=== PATIENT | male | born 1985 | race Asian ===

== ENCOUNTER 2016-10-06 18:24 | Emergency (ER) | payer MEDICAID, OTHER ==
[~2016-10-06] VITALS: Ht 167.6 cm; Wt 60.0 kg
[~2016-10-06 18:24] MED LIST: PERC5TAB12 PO; TAMS0.4C67 PO
[2016-10-06 18:27] VITALS: BP 123/65; PULSE 76; RESP 17; TEMP 98.4; O2SAT 100
--- NOTE | 2016-10-06 20:26 | PD ---
HPI Chief Complaint: Skin Problem Time Seen by Provider: 20:19 Travel History International Travel<30 days: No Contact w/Intl Traveler<30days: No Traveled to known affect area: No History of Present Illness HPI 31-year-old [place] male presents emergency department with a sunburn. He states that he had gone out in the sun on Thursday without sunscreen. The patient states that the pain is burning, itching and he cannot get any rest. He has some associated nausea but no vomiting. No fever but he does feel chilly. He denies any abdominal pain, urinary symptoms. The patient has taken [id number] Solarcaine and he had taken one of his Toradol 10 mg tablets. PFSH Past Medical History Narrative Medical Kidney stones, hepatitis B Kidney Stones: Yes Tetanus Vaccination: < 5 Years Past Surgical History Surgical History: No Previous Surgery Social History Alcohol Use: No Tobacco Use: No Substance Use: No Allergies-Medications (Allergen,Severity, Reaction): Coded Allergies: No Known Allergies (Unverified , 10/06/16) Reported Meds & Prescriptions Reported Meds & Active Scripts Active Phenergan (Promethazine HCl) 25 Mg Tablet 25 Mg PO Q6H Lortab (Hydrocodone-Acetaminophen) 5-325 Mg Tab 1 Tab PO Q8HR PRN Review of Systems Except as stated in HPI: all other systems reviewed are Neg Physical Exam Narrative GENERAL: Well-developed, well-nourished in no acute distress. Nontoxic appearing. HEAD: Normocephalic, atraumatic. EYES: Pupils equal round and reactive. Extraocular motions intact. No scleral icterus. No injection or drainage. ENT: TMs clear without erythema. The external auditory canals clear. Nose: clear . Posterior pharynx is pink and moist. No tonsillar edema or exudate. Uvula midline. Airway patent. NECK: Trachea midline.Supple, nontender, moves head freely. No central bony tenderness or spasm. CARDIOVASCULAR: Regular rate and rhythm without murmurs, gallops, or rubs. RESPIRATORY: Clear to auscultation. Breath sounds equal bilaterally. No wheezes , rales, or rhonchi. GASTROINTESTINAL: Abdomen soft, non-tender, nondistended. No hepato-splenomegaly , or palpable masses. No guarding. EXTREMITIES: No clubbing, cyanosis, or edema. No joint tenderness, effusion, or edema noted. BACK: Nontender without deformity or crepitance. No flank tenderness. Skin: The patient has first degree erythematous solar burn to the posterior neck , shoulders and upper back. There is no blistering. No signs of any secondary infection. Data Data Last Documented VS Vital Signs Date Time Temp Pulse Resp B/P Pulse Ox O2 Delivery O2 Flow Rate FiO2 10/06/16 18:27 98.4 76 17 123/65 100 Orders Promethazine (Phenergan) (10/06/16 20:30) Acetamin-Hydrocod 325-5 Mg (Warden 5-325 (10/06/16 20:30) Dexamethasone Inj (Decadron Inj) (10/06/16 20:45) Diphenhydramine Inj (Benadryl Inj) (10/06/16 20:45) MDM Medical Decision Making Medical Screen Exam Complete: Yes Emergency Medical Condition: Yes Medical Record Reviewed: Yes Differential Diagnosis MDM: High Differential diagnoses: Abscess, folliculitis, cellulitis, lymphangitis, abrasion, contact dermatitis, solar burn Narrative Course Patient has first degree solar burn. The patient was given Decadron 10 mg IM, Benadryl 50 mg IM, Phenergan and Lortab here in the ER. This is solar burn Diagnosis Primary Impression: solar burn Patient Instructions: General Instructions Additional Instructions: Rest. Increase fluids. 3 Advil every 6 hours. Lortab and Phenergan. Oatmeal or Aveeno bath. BLUE ALOE GEL Return to the ER for any problems. Follow-up with a medical doctor next 3-7 days. Med/Other Pt SpecificInfo: Prescription(s) given Scripts Promethazine (Phenergan)25 Mg [id number] Mg PO Q6H #20 TAB Ref 0 Prov:Parth Griffith MD 10/06/16 Hydrocodone-Acetaminophen (Lortab)5-325 Mg Tab1 Tab PO Q8HR PRN (PAIN) #12 TAB Prov:Parth Griffith MD 10/06/16 Disposition: 01 DISCHARGE HOME Condition: Stable Ismael Henley Oct 06, 2016 20:26
[2016-10-06] MEDS ORDERED: PROM25TA10 PO (20:29)
[2016-10-06] MEDS ORDERED: HYDR-3533 PO (20:29)
[2016-10-06] MEDS ORDERED: ACETAMINOPHEN/HYDROcodone 325 MG/5 MG TAB PO ONE (20:30)
[2016-10-06] MEDS ORDERED: PROMETHAZINE HCL 25 MG TAB PO ONE (20:30)
[2016-10-06] MEDS ORDERED: diphenhydrAMINE HCL 50 MG/ML VIAL IM ONE (20:45)
[2016-10-06] MEDS ORDERED: DEXAMETHASONE SOD PHOS 20 MG/5 ML VIAL IM ONE (20:45)
== END 2016-10-06 21:09 | disposition home or self-care (01) ==
LOC: NEPD 18:24
DX: L55.0 Sunburn of first degree (principal); Z87.442 Personal history of urinary calculi; Z86.19 Personal history of other infectious and parasitic diseases; X32.XXXA Exposure to sunlight, initial encounter
CPT/HCPCS: 96372; 99284; J1100; J1200; Q0169